=== PATIENT | female | born 1995 | race Caucasian/White ===

== ENCOUNTER 2021-03-30 18:00 | Emergency (ER) | payer OTHER ==
[~2021-03-30] VITALS: Ht 165.1 cm; Wt 54.4 kg
[2021-03-30] MEDS ORDERED: VISTARIL25 MG PO (23:22)
== END 2021-03-30 23:33 | disposition home or self-care (01) ==
LOC: ER 18:00
DX: R07.89 Other chest pain (principal); F41.8 Other specified anxiety disorders

== ENCOUNTER 2024-09-17 10:54 | Emergency (ER) | payer OTHER ==
[~2024-09-17] VITALS: Ht 165.1 cm; Wt 61.2 kg
[~2024-09-17 10:54] MED LIST: VISTARIL25 MG PO
[2024-09-17] MEDS ORDERED: PRENATABS RX T1 EACH PO (13:45)
[2024-09-17] MEDS ORDERED: FAMOTIDINE/PF 20 MG in 0.9 % SODIUM CHLORIDE 8 ML IV PUSH STA (18:37)
[2024-09-17] MEDS ORDERED: FAMOTIDINE/PF 20 MG/2 ML VIAL ONE (18:38)
[2024-09-17] MEDS ORDERED: ONDANSETRON HCL 2 MG/ML VIAL ONE (18:38)
[2024-09-17] MEDS ORDERED: 0.9 % SODIUM CHLORIDE 1,000 ML IV SCH (18:45)
[2024-09-17] MEDS ORDERED: ONDANSETRON HCL 2 MG/ML VIAL IV ONE (18:45)
[2024-09-17] MEDS ORDERED: DIPHENOXYLATE HCL/ATROPINE 1 UDTAB TABLET PO ONE (18:45)
[2024-09-17 19:31] LABS: BASO % 0.2 % (0.1-1.2); EOS % 0.7 % (0.7-7.0); HEMATOCRIT 39.1 % (34.1-44.9); HEMOGLOBIN 12.9 g/dL (11.2-15.7); LYMPH % 14.3 % (19.3-53.1); MONO % 7.2 % (4.7-12.5); NEUT % 77.4 % (34.0-71.1); PLATELET COUNT 179 K/uL (163-369); RED BLOOD COUNT 4.97 M/uL (3.93-5.22)
[2024-09-17 19:32] LABS: EOS # 0.04 (0.04-0.54); LYMPH # 0.83 (1.18-3.74); MONO # 0.42 (0.24-0.82); NEUT # 4.49 (1.56-6.13)
[2024-09-17 19:59] LABS: ALBUMIN 3.6 gm/dL (3.4-5.0); BILIRUBIN TOTAL 0.5 mg/dL (0.3-1.2); CALCIUM 8.1 mg/dL (8.5-10.1); CREATININE SERUM 0.58 mg/dL (0.55-1.02); GFR 121.25; GLOBULINA 3.7 G/DL (2.4-3.5); POTASSIUM 3.52 mEq/L (3.5-5.1); TOTAL PROTEIN 7.3 gm/dL (6.4-8.2)
[2024-09-17] MEDS ORDERED: PEPCID AC20 MG PO (20:19)
[2024-09-17] MEDS ORDERED: PRENATABS FA T1 EACH PO (20:19)
[2024-09-17] MEDS ORDERED: ONDANSETRON ODT8 MG PO (20:19)
== END 2024-09-17 20:35 | disposition home or self-care (01) ==
LOC: ER 10:54
PROVIDERS: General Practice
DX: Z34.90 Encounter for supervision of normal pregnancy, unspecified, unspecified trimester (principal); Z3A.01 Less than 8 weeks gestation of pregnancy; K52.9 Noninfective gastroenteritis and colitis, unspecified; R10.9 Unspecified abdominal pain; Z91.011 Allergy to milk products; Z91.018 Allergy to other foods

== ENCOUNTER 2025-02-15 10:26 | Outpatient (CLI) | payer OTHER ==
[~2025-02-15 10:26] MED LIST changes: +ONDANSETRON ODT8 MG PO; +PEPCID AC20 MG PO; +PRENATABS FA T1 EACH PO; +PRENATABS RX T1 EACH PO
== END 2025-02-15 11:36 | disposition home or self-care (01) ==
LOC: NST 10:26
PROVIDERS: ATTEND Obstetrics & Gynecology Maternal & Fetal Medicine
DX: Z34.82 Encounter for supervision of other normal pregnancy, second trimester (principal)